=== PATIENT | female | born 1970 | race Caucasian/White ===

== ENCOUNTER 2018-12-17 10:43 | Emergency (ER) | payer BC ==
[2018-12-17] MEDS ORDERED: 0.9 % SODIUM CHLORIDE 1,000 ML BAG IV ONE (11:51)
--- NOTE | 2018-12-17 11:57 | Emergency Department Record ---
History of Present Illness - General Chief Complaint: Abdominal Pain Stated Complaint: ABD PAIN Time Seen by Provider: 12/17/18 11:23 Source: Patient Mode of Arrival: Ambulatory Limitations: No limitations - History of Present Illness Initial Comments: The patient is here due to AP for a week off and on. The pain is sharp and stabbing and located now in the RLQ. She did have some nausea with it but no vomiting, fever, dysuria, or any vaginal symptoms. The patient has had her GB removed in the past and has had a BTL. She did originally go to the [facility] but was sent to the ER. Complaint: Abdominal pain Onset/Timin -: Week(s) Location: RLQ, Other Radiation: Epigastric Severity scale (1-10): 4 Quality: Sharp Consistency: Constant Improves With: Nothing Worsens With: Nothing - Related Data Previous Rx's Medication Instructions Recorded Naproxen [Naprosyn] 500 mg PO BID #14 tablet. 12/17/18 Allergies Allergy/AdvReac Type Severity Reaction Status Date / Time No Known Allergies Allergy none Verified 12/17/18 11:21 Travel Screening - Travel/Exposure Within Last 30 Days Have you traveled within the last 30 days?: No - Travel/Exposure Within Last Year Have you traveled outside the [place] in the last year?: No - Additonal Travel Details Have you been exposed to anyone with a communicable illness?: No - Travel Symptoms Symptom Screening: None Review of Systems Constitutional: Denies: Chills, Fever Eyes: Denies: Eye discharge ENT: Denies: Congestion Respiratory: Denies: Cough, Dyspnea Cardiovascular: Denies: Chest pain Endocrine: Denies: Fatigue Gastrointestinal: Reports: Nausea. Denies: Diarrhea Genitourinary: Denies: Dysuria Musculoskeletal: Denies: Arthralgia Skin: Denies: Bruising Past Medical History - SOCIAL HISTORY Smoking Status: Never smoker Alcohol Use: Occasional Drug Use: None - RESPIRATORY Hx Respiratory Disorders: No - CARDIOVASCULAR Hx Cardio Disorders: No - NEURO Hx Neuro Disorders: No - GI Hx GI Disorders: Yes Hx Reflux: Yes - Hx Genitourinary Disorders: No - ENDOCRINE Hx Endocrine Disorders: No - MUSCULOSKELETAL Hx Musculoskeletal Disorders: Yes Hx Arthritis: Yes - PSYCH Hx Psych Problems: No - HEMATOLOGY/ONCOLOGY Hx Hematology/Oncology Disorders: No Family Medical History Any Significant Family History?: No Physical Exam - General General Appearance: Alert, Oriented x3, Cooperative, No acute distress - Head Head exam: Atraumatic, Normocephalic, Normal inspection - Eye Eye exam: Normal appearance, PERRL, EOMI - Neck Neck exam: Normal inspection, Full ROM. negative: Tenderness - Respiratory Respiratory exam: Normal lung sounds bilaterally. negative: Respiratory distress - Cardiovascular Cardiovascular Exam: Regular rate, Normal rhythm, Normal heart sounds - GI/Abdominal GI/Abdominal exam: Soft, Normal bowel sounds, Tenderness (There is mild RLQ t enderness to palpation but the abdomen is soft.). negative: Diminished bowel sounds, Distended, Guarding, Hernia, Rebound, Rigid - Extremities Extremities exam: Normal inspection, Full ROM, Normal capillary refill. negative: Tenderness - Back Back exam: Reports: Normal inspection - Neurological Neurological exam: Alert, Normal gait. negative: Abnormal gait, Motor sensory deficit Course Vital Signs 12/17/18 10:58 Temperature 98.7 F Pulse Rate 81 Respiratory 16 Rate Blood Pressure 130/75 Pulse Ox 100 - Reevaluation(s) Reevaluation #1: The patient is doing very well at this time. She states the pain is improved. I did discuss the need to take the Naprosyn at home and to see her PCP next week if not better. 12/17/18 13:25 Medical Decision Making - Data Complexity MDM Data: Labs Ordered and/or Reviewed, X-Ray Ordered and/or Reviewed - Lab Data Result diagrams: 12/17/18 11:05 12/17/18 11:05 - Radiology Data Radiology results: Report reviewed (Abd CT: Neg for stones, or Appy.) Disposition Disposition: Discharge Clinical Impression: Abdominal pain Qualifiers: Abdominal location: unspecified location Qualified Code(s): R10.9 - Unspecified abdominal pain Disposition: Home, Self-Care Condition: (2) Stable Instructions: Abdominal Pain (ED) Additional Instructions: Please drink plenty of fluids and take the Naprosyn for pain. Please see your family doctor early next week for recheck and return to the ER for any worsening symptoms. Prescriptions: Naproxen [Naprosyn] 500 mg PO BID #14 tablet.dr Forms: Patient Portal Access Time of Disposition: 13:26 Quality - Quality Measures Quality Measures: N/A - Blood Pressure Screening View Details: Yes Does Patient Have Any of the Following: No Blood Pressure Classification: Pre-Hypertensive BP Reading Systolic Measurement: 130 Diastolic Measurement: 75 Screening for High Blood Pressure: < Pre-Hypertensive BP, F/U Documented > [G8 950] Pre-Hypertensive Follow-up Interventions: Referral to alternative/primary care provider.
[2018-12-17 12:01] LABS: ABSOLUTE NEUTROPHIL COUNT 4.27; BASO % 0.3 % (0-6); EOS % 0.5 % (0-6); GRAN % 67.5 % (47-80); HEMATOCRIT 42.2 % (35.0-47.0); HEMOGLOBIN 13.9 gm/dl (11.6-16.0); LYMPH % 24.3 % (16-45); MEAN CELL VOLUME 101.4 fl (81-97); MEAN CORPUSCULAR HEMOGLOBIN 33.4 pg (27-33); MEAN CORPUSCULAR HGB CONC 32.9 g/dl (32-36); MONO % 7.4 % (0-9); PLATELET COUNT 388 K/uL (130-400); RED BLOOD COUNT 4.16 M/uL (3.80-5.40); RED CELL DISTRIBUTION WIDTH 12.9 % (11.5-14.5); URINE APPEARANCE CLEAR; URINE BILIRUBIN NEGATIVE (NEGATIVE); URINE BLOOD NEGATIVE (NEGATIVE); URINE COLOR YELLOW; URINE GLUCOSE (UA) NEGATIVE (NEGATIVE); URINE KETONE NEGATIVE (NEGATIVE); URINE LEUKOCYTE ESTERASE NEGATIVE (NEGATIVE); URINE NITRITE NEGATIVE (NEGATIVE); URINE PROTEIN NEGATIVE (NEGATIVE); URINE UROBILINOGEN 0.2 E.U./dL (0.20 - 1.00); WHITE BLOOD COUNT W/O DIFF 6.3 K/uL (4.2-12.2)
[2018-12-17 12:03] LABS: HCG,QUALITATIVE URINE NEGATIVE (NEGATIVE)
[2018-12-17 12:10] LABS: BLOOD UREA NITROGEN 11 mg/dL (6-20); CREATININE 0.5 mg/dL (0.5-0.9); EST GLOMERULAR FILTRATION RATE > 60 mL/min
[2018-12-17 12:11] LABS: LIPASE 25 U/L (13-60); TOTAL PROTEIN 7.2 g/dL (6.6-8.7)
[2018-12-17 12:13] LABS: GLUCOSE,RANDOM 88 mg/dL (74-109)
[2018-12-17 12:15] LABS: ALBUMIN 4.7 g/dL (4.0-5.0); ALT/SGPT 14 U/L (<33); AST/SGOT 24 U/L (10.0-35.0)
[2018-12-17 12:16] LABS: ALKALINE PHOSPHATASE 53 U/L (35-104); BILIRUBIN,DIRECT < 0.2 mg/dL (0-0.3)
[2018-12-17] MEDS ORDERED: KETOROLAC 30 MG/ML VIAL IVP ONE (12:24)
--- NOTE | 2018-12-17 13:41 | Emergency Department Record ---
History of Present Illness - General Chief Complaint: Abdominal Pain Stated Complaint: ABD PAIN Time Seen by Provider: 12/17/18 11:23 Source: Patient Mode of Arrival: Ambulatory Limitations: No limitations - History of Present Illness MD Complaint: Abdominal pain Onset/Timin -: Week(s) Location: RLQ, Other Radiation: Epigastric Severity scale (1-10): 4 Quality: Sharp Consistency: Constant Improves With: Nothing Worsens With: Nothing - Related Data Patient : No Previous Rx's Medication Instructions Recorded Naproxen [Naprosyn] 500 mg PO BID #14 tablet. 12/17/18 Allergies Allergy/AdvReac Type Severity Reaction Status Date / Time No Known Allergies Allergy none Verified 12/17/18 11:21 Travel Screening - Travel/Exposure Within Last 30 Days Have you traveled within the last 30 days?: No - Travel/Exposure Within Last Year Have you traveled outside the [place] in the last year?: No - Additonal Travel Details Have you been exposed to anyone with a communicable illness?: No - Travel Symptoms Symptom Screening: None Review of Systems Constitutional: Denies: Chills, Fever Eyes: Denies: Eye discharge ENT: Denies: Congestion Respiratory: Denies: Cough, Dyspnea Cardiovascular: Denies: Chest pain Endocrine: Denies: Fatigue Gastrointestinal: Reports: Nausea. Denies: Diarrhea Genitourinary: Denies: Dysuria Musculoskeletal: Denies: Arthralgia Skin: Denies: Bruising Neurological: Denies: Abnormal gait Past Medical History - SOCIAL HISTORY Smoking Status: Never smoker Alcohol Use: Occasional Drug Use: None - RESPIRATORY Hx Respiratory Disorders: No - CARDIOVASCULAR Hx Cardio Disorders: No - NEURO Hx Neuro Disorders: No - GI Hx GI Disorders: Yes Hx Reflux: Yes - Hx Genitourinary Disorders: No - ENDOCRINE Hx Endocrine Disorders: No - MUSCULOSKELETAL Hx Musculoskeletal Disorders: Yes Hx Arthritis: Yes - PSYCH Hx Psych Problems: No - HEMATOLOGY/ONCOLOGY Hx Hematology/Oncology Disorders: No Family Medical History Any Significant Family History?: No Physical Exam - General Limitations: No limitations Course Vital Signs 12/17/18 10:58 Temperature 98.7 F Pulse Rate 81 Respiratory 16 Rate Blood Pressure 130/75 Pulse Ox 100 - Reevaluation(s) Reevaluation #1: on recheck of the patient's abdomen she is having no lower abdominal or pelvic tenderness. The abdomen is very soft and the only tenderness she is having is over the R flank area. She appears very comfortable and is very cooperative and calm. 12/17/18 13:40 Medical Decision Making - Lab Data Result diagrams: 12/17/18 11:05 12/17/18 11:05 Lab Results 12/17/18 12/17/18 12/17/18 Range/Units 11:05 11:05 11:05 WBC 6.3 (4.2-12.2) K/uL RBC 4.16 (3.80-5.40) M/uL Hgb 13.9 (11.6-16.0) gm/dl Hct 42.2 (35.0-47.0) % MCV 101.4 H (81-97) fl MCH 33.4 H (27-33) pg MCHC 32.9 (32-36) g/dl RDW 12.9 (11.5-14.5) % Plt Count 388 (130-400) K/uL MPV 10.0 (7.4-10.4) fl Gran % 67.5 (47-80) % Lymphocytes % 24.3 (16-45) % Monocytes % 7.4 (0-9) % Eosinophils % 0.5 (0-6) % Basophils % 0.3 (0-6) % Absolute Neutrophils 4.27 Sodium 137 (136-145) mmol/L Potassium 3.9 (3.4-4.5) mmol/L Chloride 100 (98-107) mmol/L Carbon Dioxide 26.0 (22-29) mmol/L Anion Gap 11.0 (7-16) BUN 11 (6-20) mg/dL Creatinine 0.5 (0.5-0.9) mg/dL Estimated GFR > 60 mL/min Random Glucose 88 (74-109) mg/dL Calcium 9.5 (8.6-10.0) mg/dL Total Bilirubin 0.80 (0.2-1.0) mg/dL Direct Bilirubin < 0.2 (0-0.3) mg/dL AST 24 (10.0-35.0) U/L ALT 14 (<33) U/L Alkaline Phosphatase 53 (35-104) U/L Total Protein 7.2 (6.6-8.7) g/dL Albumin 4.7 (4.0-5.0) g/dL Lipase 25 (13-60) U/L Urine Color Yellow Urine Appearance Clear Urine pH 5.5 (5.0-8.0) Ur Specific Harrison <= 1.005 (1.002-1.030) Urine Protein Negative (NEGATIVE) Urine Glucose (UA) Negative (NEGATIVE) Urine Ketones Negative (NEGATIVE) Urine Blood Negative (NEGATIVE) Urine Nitrite Negative (NEGATIVE) Urine Bilirubin Negative (NEGATIVE) Urine Urobilinogen 0.2 (0.20 - 1.00) E.U./dL Ur Leukocyte Esterase Negative (NEGATIVE) Urine HCG, Qual Negative (NEGATIVE) Disposition Clinical Impression: Abdominal pain Qualifiers: Abdominal location: unspecified location Qualified Code(s): R10.9 - Unspecified abdominal pain Disposition: Home, Self-Care Condition: (2) Stable Instructions: Abdominal Pain (ED) Additional Instructions: Please drink plenty of fluids and take the Naprosyn for pain. Please see your family doctor early next week for recheck and return to the ER for any worsening symptoms. Prescriptions: Naproxen [Naprosyn] 500 mg PO BID #14 tablet.dr Forms: Patient Portal Access Quality - Quality Measures Quality Measures: N/A - Blood Pressure Screening View Details: Yes Does Patient Have Any of the Following: No Blood Pressure Classification: Pre-Hypertensive BP Reading Systolic Measurement: 130 Diastolic Measurement: 75 Screening for High Blood Pressure: < Pre-Hypertensive BP, F/U Documented > [G8950] Pre-Hypertensive Follow-up Interventions: Referral to alternative/primary care provider.
--- NOTE | 2018-12-18 17:31 | CT SCAN REPORT ---
EXAM: CT SCAN ABDOMEN/PELVIS WO CONTRAST HISTORY: RIGHT LOWER QUADRANT ABDOMINAL PAIN. TECHNIQUE: Noncontrast CT abdomen and pelvis. COMPARISON: None. FINDINGS: Lung bases are clear. Gallbladder surgically absent. Unremarkable noncontrast appearance of the liver, spleen, adrenal glands, and pancreas. Right renal collecting system appears mildly dilated. No calculi identified within the kidneys, ureters, or urinary bladder. Sigmoid colon is tortuous and redundant. No focal colonic thickening or inflammatory change. Normal appendix identified in the right lower abdominal quadrant. Stomach and small bowel are nondilated. No pneumoperitoneum. No significant free fluid. Suggestion of small bilateral ovarian follicles. Right adnexal surgical clip noted. Abdominal aorta is nondilated. No acute osseous findings. IMPRESSION: 1. NO ACUTE FINDINGS IN THE ABDOMEN OR PELVIS. 2. NORMAL APPENDIX. 3. MILDLY DILATED APPEARANCE OF THE RIGHT INTRARENAL COLLECTING SYSTEM. NO CALCULI OR OTHER FOCAL OBSTRUCTING LESION ARE IDENTIFIED. JOB NUMBER: [id number] MTDD
== END 2018-12-17 13:51 | disposition home or self-care (01) ==
LOC: ER 10:43
DX: R10.31 Right lower quadrant pain (principal); R11.0 Nausea
CPT/HCPCS: 99284 ×2; 96374; 83690; 85025; 80076; 80048; 81003; 81025; 74176; J1885; J7030